=== PATIENT | male | born 1970 | race Caucasian/White ===

== ENCOUNTER 2024-03-08 12:51 | Outpatient (CLI) | payer OTHER, SELFPAY | END 2024-03-08 12:52 | disposition home or self-care (01) | PROVIDERS: PCP Family Medicine; Visit Provider Family Medicine | DX: Z00.00 Encounter for general adult medical examination without abnormal findings (principal); I10 Essential (primary) hypertension; E78.5 Hyperlipidemia, unspecified; E21.3 Hyperparathyroidism, unspecified | CPT/HCPCS: 80053; 80061; 82043; 82570; 83970; 84443 ==

== ENCOUNTER 2025-05-02 13:14 | Outpatient (CLI) | payer OTHER, SELFPAY | END 2025-05-02 13:15 | disposition home or self-care (01) | PROVIDERS: PCP Family Medicine; Visit Provider Family Medicine | DX: I10 Essential (primary) hypertension (principal); E78.5 Hyperlipidemia, unspecified; E21.3 Hyperparathyroidism, unspecified; Z12.5 Encounter for screening for malignant neoplasm of prostate; Z13.1 Encounter for screening for diabetes mellitus; Z13.6 Encounter for screening for cardiovascular disorders | CPT/HCPCS: 80053; 80061; 82043; 82570; 83970; G0103 ==

== ENCOUNTER 2025-06-19 14:50 | Outpatient (CLI) | payer OTHER, SELFPAY | END 2025-06-19 14:51 | disposition home or self-care (01) | LOC: NFLDREF 06-21 18:00 | PROVIDERS: PCP Family Medicine; Referring Provider Family Medicine; Visit Provider Family Medicine | DX: B35.1 Tinea unguium (principal) | CPT/HCPCS: 80053 ==

== ENCOUNTER 2025-08-19 14:43 | Outpatient (CLI) | payer OTHER, SELFPAY | END 2025-08-19 14:44 | disposition home or self-care (01) | LOC: NFLDREF 08-21 19:04 | PROVIDERS: PCP Family Medicine; Referring Provider Family Medicine; Visit Provider Family Medicine | DX: B35.1 Tinea unguium (principal) | CPT/HCPCS: 80053 ==

== ENCOUNTER 2025-10-08 14:48 | Outpatient (CLI) | payer OTHER, SELFPAY | END 2025-10-08 14:49 | disposition home or self-care (01) | LOC: NFLDREF 10-11 04:39 | PROVIDERS: PCP Family Medicine; Referring Provider Family Medicine; Visit Provider Family Medicine | DX: B35.1 Tinea unguium (principal) | CPT/HCPCS: 80053 ==